=== PATIENT | female | born 1960 | race Caucasian/White ===

== ENCOUNTER 2017-07-19 16:15 | Inpatient (IN) | payer OTHER ==
[~2017-07-19] VITALS: Ht 172.7 cm; Wt 69.9 kg
[2017-07-19 17:08] LABS: BASOPHILS # (AUTO) 0.1 /CMM (0.0-0.2); BASOPHILS % (AUTO) 1.3 % (0.0-2.0); EOSINOPHILS # (AUTO) 0.5 /CMM (0.0-0.7); EOSINOPHILS % (AUTO) 7.2 % (0.0-6.0); HEMATOCRIT 38 % (33-45); HEMOGLOBIN 12.7 g/dL (11.5-14.8); LYMPHOCYTES % (AUTO) 28.9 % (20.0-44.0); MEAN CORPUSCULAR HEMOGLOBIN 30 PG (26.0-33.0); MEAN CORPUSCULAR HGB CONC 33 g/dl (31.0-36.0); MEAN CORPUSCULAR VOLUME 90 fL (82-100); MONOCYTES # (AUTO) 0.8 /CMM (0.1-1.30); MONOCYTES % (AUTO) 10.8 % (2.0-12.0); NEUTROPHILS # (AUTO) 3.6 /CMM (1.8-8.9); NEUTROPHILS % (AUTO) 51.8 % (43.0-81.0); PLATELET COUNT (AUTO) 162 /CMM (150-450); RDW COEFFICIENT OF VARIATION 12.9 (11.5-15.0); RED BLOOD CELL COUNT(AUTO) 4.26 MIL/uL (4.0-5.2)
[2017-07-19 17:21] LABS: ALBUMIN 2.8 g/dL (3.4-5.0); BILIRUBIN,DIRECT 0.1 mg/dL (0.0-0.2); BILIRUBIN,TOTAL 0.4 mg/dL (0.2-1.0); CALCIUM, SERUM 8.4 mg/dL (8.5-10.1); CREATININE 0.9 mg/dL (0.6-1.3); TOTAL PROTEIN, SERUM 6.5 g/dL (6.4-8.2)
--- NOTE | 2017-07-19 17:30 | NUR ---
MICHAEL FROM [facility] FOR ABDOMINAL PAIN, SORETHROAT AND DYSPHAGIA. NAD NOTED. PT AAO X4, VSS. RR EVEN AND UNLABORED. VSS. PENDING MD DIEZ.
--- NOTE | 2017-07-19 18:00 | NUR ---
PT BACK FROM CT
[2017-07-19] MEDS ORDERED: TEMA15CA PO (18:18)
[2017-07-19] MEDS ORDERED: ACET-868 PO (18:18)
[2017-07-19] MEDS ORDERED: CLOZ100T32 PO (18:18)
[2017-07-19] MEDS ORDERED: LORA1TAB PO (18:18)
[2017-07-19] MEDS ORDERED: MAGN400O6 PO (18:18)
[2017-07-19] MEDS ORDERED: ARIP10TA15 PO (18:18)
[2017-07-19] MEDS ORDERED: MAG-5 PO (18:18)
[2017-07-19 18:25] LABS: APPEARANCE,URINE Cloudy (CLEAR); BILIRUBIN,URINE Negative (NEGATIVE); BLOOD, URINE Negative Ery/uL (NEGATIVE); COLOR,URINE Yellow (YELLOW); KETONES,URINE Negative (NEGATIVE); LEUKOCYTE ESTERASE ,URINE Negative (NEGATIVE); NITRITE, URINE Negative (NEGATIVE); PROTEIN,URINE Trace mg/dl (NEGATIVE); UGLUCOSE Negative (NEGATIVE); UROBILINOGEN,URINE 0.2 EU/dL (0.2)
[2017-07-19] MEDS ORDERED: IV NS 0.9% 1,000 ML BAG IV ONE (18:30)
[2017-07-19] MEDS ORDERED: LEVE500T9 PO (18:46)
[2017-07-19] MEDS ORDERED: DIVA500T7 PO (18:46)
[2017-07-19] MEDS ORDERED: ATOR20TA PO (18:46)
[2017-07-19] MEDS ORDERED: DIVA250T6 PO (18:46)
[2017-07-19 19:17] LABS: PH,URINE >9.0 (5.0-8.0)
--- NOTE | 2017-07-19 19:21 | NUR ---
PATIENT WILL BE ADMITTED INTO ROOM 324-2.
[2017-07-19 19:22] LABS: BACTERIA,URINE Few /HPF (None Seen); MUCUS,URINE Few /LPF (None Seen); RBC,URINE 0-2 /HPF (0-2); SQUAMOUS EPITHELIAL CELL,UR Moderate /HPF (None Seen); URINE AMORPHOUS PHOSPHATES Many /HPF (None Seen)
--- NOTE | 2017-07-19 19:33 | NUR ---
REPORT GIVEN TO FARIDA MOON FOR MACY.
--- NOTE | 2017-07-19 19:35 | NUR ---
KANNAN/CNA AT BEDSIDE AND TO ORDER MIDLINE FOR PT.
[2017-07-19 19:45] VITALS: BP 105/67
--- NOTE | 2017-07-19 19:45 | NUR ---
RN NOTES ADMITTED A 56 YEARS OLD FEMALE PT FROM [facility] WITH PRIMARY DIAGNOSIS OF DYSPHAGIA AND INTRACTABLE NAUSEA AND VOMITING. PT IS ALERT AND ORIENTED X2-3, LOOKS ANXIOUS, ABDOMINAL AT TOLERABLE LEVEL AT THIS TIME, DENIES NAUSEA AND VOMITING, NO SOB, NOT IN DISTRESS, ON ROOM AIR WITH GOOD SATURATION. PT WAS NOTED SPITTING OUT SALIVA. NO IV ACCESS AT THIS TIME, WILL INSERT MIDLINE ORDERED. KEPT PT COMFORTABLE AND ATTENDED. ALL ORDERES NOTED AND CARRIED OUT. WILL CONTINUE TO MONITOR PT.
[2017-07-19 20:00] VITALS: BP 105/67
[2017-07-19] MEDS ORDERED: MORPHINE SULFATE INJ 2 MG/ML DISP.SYRIN IV PRN (20:00)
[2017-07-19] MEDS ORDERED: ACETAMINOPHEN 325 MG TABLET PO PRN (20:00)
[2017-07-19] MEDS ORDERED: IV D5/ 0.9% NACL 1,000 ML IV ONE (20:00)
[2017-07-19] MEDS ORDERED: ONDANSETRON HCL/PF 4 MG/2 ML VIAL IVP PRN (20:00)
[2017-07-19] MEDS ORDERED: MAG HYDROX/AL HYDROX/SIMETH 30 ML UDC PO PRN (20:00)
[2017-07-19] MEDS ORDERED: MAGNESIUM HYDROXIDE 30 ML UDC PO PRN (20:00)
[2017-07-19] MEDS: ENOXAPARIN SODIUM 40 MG/0.4 ML DISP.SYRIN SQ SCH (20:56)
[2017-07-19] MEDS ORDERED: LORAZEPAM INJ 2 MG/ML VIAL IV PRN (21:00)
[2017-07-19] MEDS ORDERED: HYDROMORPHONE 1 MG/1 ML DISP.SYRIN IV PRN (21:00)
--- NOTE | 2017-07-19 22:55 | NUR ---
RN NOTES MIDLINE INSERTED ON RIGHT UPPER ARM WITH GAUGE 20, PT TOLERATED PROCEDURE WELL. WILL START ALL IV MEDS AND FLUID ORDERED.
[2017-07-19] MEDS: VALPROATE 250 MG in IV D5W 100 ML IV SCH (23:04)
[2017-07-20] MEDS: FAMOTIDINE/PF INJ 20 MG/2 ML VIAL IV SCH ×3 (00:05→20:43)
[2017-07-20] MEDS: VALPROATE 250 MG in IV D5W 100 ML IV SCH ×3 (05:46→20:44)
--- NOTE | 2017-07-20 07:05 | NUR ---
RN NOTES PT AWAKE, HOB ELEVATED,NO SOB, NOT IN DISTRESS, ON ROOM AIR WITH GOOD SATURATION. VITAL SIGNS STABLE, AFEBRILE. NO COMPLAIN OF PAIN, NO EPISODE OF NAUSEA AND VOMITING. KEPT PT ON NPO UNTIL SWALLOW EVAL DONE. ALL DUE MEDS GIVEN. ALL NEEDS MET. WILL ENDORSE TO MORNING RN FOR CONTINUITY OF CARE.
[2017-07-20 07:14] LABS: BASOPHILS # (AUTO) 0.1 /CMM (0.0-0.2); BASOPHILS % (AUTO) 2.5 % (0.0-2.0); EOSINOPHILS # (AUTO) 0.5 /CMM (0.0-0.7); HEMATOCRIT 34 % (33-45); HEMOGLOBIN 11.4 g/dL (11.5-14.8); LYMPHOCYTES # (AUTO) 2.1 /CMM (0.8-4.8); LYMPHOCYTES % (AUTO) 40.8 % (20.0-44.0); MEAN CORPUSCULAR HEMOGLOBIN 31 PG (26.0-33.0); MEAN CORPUSCULAR HGB CONC 34 g/dl (31.0-36.0); MEAN CORPUSCULAR VOLUME 91 fL (82-100); MONOCYTES # (AUTO) 0.5 /CMM (0.1-1.30); MONOCYTES % (AUTO) 9.7 % (2.0-12.0); NEUTROPHILS # (AUTO) 1.9 /CMM (1.8-8.9); PLATELET COUNT (AUTO) 139 /CMM (150-450); RDW COEFFICIENT OF VARIATION 13.1 (11.5-15.0); RED BLOOD CELL COUNT(AUTO) 3.69 MIL/uL (4.0-5.2); WHITE BLOOD COUNT (AUTO) 5.1 K/uL (4.3-11.0)
--- NOTE | 2017-07-20 07:15 | NUR ---
MS RN OPENING NOTES RECEIVED PT FROM NIGHTSHIFT NURSE IN STABLE CONDITION. PT IS A/O X2-3. NO SOB OR SIGNS OF DISTRESS NOTED. BREATHING IS EVEN AND UNLABORED. PT DENIES ANY PAIN AT THIS TIME. NO COMPLAINTS OF NAUSEA OR REPORTED VOMITING DURING THE NIGHT. RIGHT UPPER ARM MIDLINE 20G INTACT AND PATENT INFUSING D5 NS @ 100ML/HR. PT. TOLERATING INFUSION WELL. NO REDNESS IR SIGNS OF INFILTRATION NOTED. PT. REMAINS NPO. SEIZURE PRECAUTIONS IN PLACE. BED IN LOW LOCKED POSITION, ASIDE RAILS UP X2, CALL LIGHT WITHIN REACH. WILL CONTINUE TO MONITOR.
[2017-07-20 07:35] LABS: CALCIUM, SERUM 7.7 mg/dL (8.5-10.1); CREATININE 0.9 mg/dL (0.6-1.3); MAGNESIUM 1.9 mg/dL (1.8-2.4); PHOSPHORUS 4.6 mg/dL (2.5-4.9); POTASSIUM 4.2 mmol/L (3.5-5.1)
[2017-07-20 08:00] VITALS: BP 113/73
--- NOTE | 2017-07-20 08:49 | NUR ---
MS RN NOTES DR. DIAZ ASKS THAT THE PT. BE PREPARED FOR AN EGD. PT STATED THTY. WAS ASKED IF SHE CAN SIGNS HER OWN CONSENTS. PT. CONSENTED TO PROCEDURE AND SIGNED CONSENTS. SURGICAL CHECKLIST COMPLETED.
--- NOTE | 2017-07-20 08:52 | NUR ---
MS RN NOTES ADMITTING AND CASE MANAGEMENT WERE NOTIFIED THAT THE PT HAS A CONSERVATOR. THE CONSERVATOR'S CONTACT INFORMATION WAS GIVEN TO EACH.
[2017-07-20] MEDS: LEVETIRACETAM (500MG) 500 MG in IV NS 0.9% 100 ML IV SCH ×4 (08:55→21:20)
--- NOTE | 2017-07-20 08:56 | NUR ---
MS RN NOTES PT. TAKEN DOWN FOR EGD PROCEDURE.
--- NOTE | 2017-07-20 09:13 | NUR ---
MS RN NOTES KATIE FROM SURGERY TO CLARIFY IF THE PT. HAS A CONSERVATOR BECAUSE THE PT. ASKED IF IT WAS OKAY FOR HER TO HAVE SIGNED HER CONSENTS WITHOUT HER CONSERVATOR. NOTHING IN THE PT'S CHART INDICATES THAT SHE HAS ONE. PT'S FACILITY WAS CALLED TO VERIFY IF THE IS TRUE. PER THE FACILITY, SHE HAS A CONSERVATOR NAMED AMY DUNAWAY WHO CAN BE REACHED BY PHONE. HER NUMBER IS [phone]. WILL CALL AMY TO GET PROPER CONSENT FOR PROCEDURE.
--- NOTE | 2017-07-20 09:22 | NUR ---
MS RN NOTES A PHONE CALL WAS PLACED TO AMY THE PT.S CONSERVATOR. AMY STATED THAT SHE IS WORRIED THAT THE PT'S CONDITION IS GETTING WORSE BECAUSE SHE HAS GONE A FEW DAYS WITHOUT EATING AND HAS LOST WEIGHT. SHE ALSO STATED THAT THE PHYSICIAN MUST FILL OUT A PHYSICIAN STATEMENT LETTER, BEFORE SHE WILL APPROVE OF ANY PROCEDURE. KATIE FROM SURGERY WAS MADE AWARE OF THIS. KATIE STATES THAT THE PT. WILL BE BROUGHT UP AND WILL AWAIT FOR THE MD TO FILL OUT THE FORM. SHE ALSO STATED THAT DR. GROVES NEEDS TO LEAVE DUE TO OTHER SCHEDULED PROCEDURES WHICH HE HAS AT AN OTHER HOSPITAL.
[2017-07-20] MEDS ORDERED: ACETAMINOPHEN 325 MG TABLET PO PRN (09:30)
[2017-07-20] MEDS ORDERED: MAG HYDROX/AL HYDROX/SIMETH 30 ML UDC PO SCH (09:30)
[2017-07-20] MEDS ORDERED: LORAZEPAM 1 MG TABLET PO PRN (09:30)
[2017-07-20] MEDS ORDERED: MAGNESIUM HYDROXIDE 30 ML UDC PO PRN (09:30)
[2017-07-20] MEDS: ARIPIPRAZOLE 5 MG TABLET PO SCH (09:48)
--- NOTE | 2017-07-20 10:36 | NUR ---
MS RN NOTES PT'S FACILITY FAXED OVER A COPY OF THE PHYSICIAN STATEMENT FORM. DR. SELLERS WAS ASKED IF HE CAN FILL OUT THE FORM BUT STATED THAT HE LEFT FOR THE DAY AND TO LET DR. DIAZ DO IT. NIKOS FROM SURGERY CALLED DR. DIAZ TO LET HIM KNOW ABOUT THE FORM AND GAVE HIM THE CONSERVATOR'S CONTACT INFORMATION SO THAT THEY CAN TALK AND TRY TO GET A CONSENT. TIRSO STATED THAT HE WILL BE BACK AROUND 1600. WILL AWAIT FOR HIS ARRIVAL
[2017-07-20] MEDS: DIVALPROEX SODIUM 250 MG TABLET.DR PO SCH ×2 (13:00→17:00)
[2017-07-20 16:00] VITALS: BP 114/70
--- NOTE | 2017-07-20 16:53 | NUR ---
MS RN NOTES CALLED SURGERY TO SEE IF DR. DIAZ HAS ARRIVED WITH A POSSIBLE UPDATE IN REGARDS TO THE PT'S EGD. SURGERY STAFF STATES THAT NIKOS IS GONE FOR THE DAY AND DR. DIAZ HAS NOT COME IN. DR. DIAZ'S EXCHANGE WAS CALLED. A VOICEMAIL WAS LEFT, BUT NO CALL BACK AT THIS TIME. ANNIKA THE CHARGE NURSE WAS MADE AWARE
[2017-07-20] MEDS: DIVALPROEX SODIUM 500 MG TABLET.DR PO SCH (17:00)
[2017-07-20] MEDS ORDERED: TEMAZEPAM 15 MG CAPSULE PO SCH (18:00)
--- NOTE | 2017-07-20 18:36 | NUR ---
MS RN CLOSING NOTES PT. REMAINS STABLE. ALL NEEDS WERE ANTICIPATED FOR AN MET DURING SHIFT. STILL AWAITING TO HEAR BACK FROM DR. DIAZ IN REGARDS TO PT'S EGD. WILL ENDORSE TO NIGHTSHIFT NURSE TO FOLLOW UP. PT IS STILL NPO AT THIS TIME. VITAL SIGNS HAVE REMAINED STABLE THROUGHOUT SHIFT. SEIZURE PRECAUTIONS REMAIN IN PLACE. WILL ENDORSE TO NIGHTSHIFT NURSE FOR MACY
--- NOTE | 2017-07-20 19:01 | NUR ---
MS RN NOTES DR. DIAZ CALLED IN REGARDS TO EGD. MD STATES THAT HE COULD NOT GET CONSENT FROM THE PT'S CONSERVATOR AND WILL NO LONGER PROCEED WITH THE EGD. ALSO STATED THAT THE PT'S DIET MAY BE CHANGED WITH THE RECOMMENDATIONS MADE BY THE SPEECH THERAPIST. WILL CHANGE FNS ORDER AND UPDATE NIGHTSHIFT NURSE
--- NOTE | 2017-07-20 19:05 | NUR ---
RN NOTES RECEIVED PT AWAKE, HOB ELEVATED, NO SOB, NOT IN DISTRESS, ON ROOM AIR AND TOLERATED WELL. PT ALERT AND ORIENTED X2-3, LOOKS ANXIOUS REGARDING HEALTH CONDITION. PT DENIES PAIN, NAUSEA AND VOMITING. PT VERBALIZING WANTING TO EAT, WILL PROVIDE PUREED FOOD WITH NECTAR THICK LIQUIDS ORDERED. RIGHT UPPER ARM MIDLINE PATENT AND INTACT WITH ONGOING IVF INFUSING WELL. ASSISTED TO THE BATHROOM WITH STEADY GAIT NOTED. FALL PRECAUTION AND SEIZURE PRECAUTION OBSERVED. KEPT COMFORTABLE AND ATTENDED. WILL CONTINUE TO MONITOR PT.
--- NOTE | 2017-07-20 19:45 | NUR ---
RN NOTES APPLE SAUCE, VANILLA PUDDING AND OZZIE WITH NECTAR THICK WATER GIVEN TO THE PT AND TOLERATED WELL. NO SIGNS OF ASPIRATION NOTED. WILL CONTINUE TO MONITOR PT.
[2017-07-20 20:11] VITALS: BP 141/81
[2017-07-20] MEDS: ENOXAPARIN SODIUM 40 MG/0.4 ML DISP.SYRIN SQ SCH (20:42)
[2017-07-20] MEDS ORDERED: LEVETIRACETAM (250 MG) 250 MG TABLET PO SCH (21:00)
[2017-07-20] MEDS: ATORVASTATIN 10 MG TABLET PO SCH (21:34)
[2017-07-20] MEDS: CLOZAPINE 100 MG TABLET PO SCH (21:34)
[2017-07-21] MEDS: VALPROATE 250 MG in IV D5W 100 ML IV SCH ×3 (05:20→21:27)
--- NOTE | 2017-07-21 06:39 | NUR ---
RN NOTES PT AWAKE, HOB ELEVATED,NO SOB, NOT IN DISTRESS, ON ROOM AIR WITH GOOD SATURATION. VITAL SIGNS STABLE, AFEBRILE. NO COMPLAIN OF PAIN, NO EPISODE OF NAUSEA AND VOMITING. PT STARTED PUREED DIET WITH NECTAR THICK LIQUIDS AND TOLERATED WELL, PT DID NOT COUGH, NO SIGNS OF ASPIRATION NOTED. ALL DUE MEDS GIVEN. ALL NEEDS MET. FALL PRECAUTION OBSERVED. NO SIGNIFICANT CHANGE IN CONDITION NOTED. WILL ENDORSE TO MORNING RN FOR CONTINUITY OF CARE.
[2017-07-21 06:54] LABS: BASOPHILS # (AUTO) 0.1 /CMM (0.0-0.2); BASOPHILS % (AUTO) 2.4 % (0.0-2.0); EOSINOPHILS # (AUTO) 0.5 /CMM (0.0-0.7); EOSINOPHILS % (AUTO) 8.6 % (0.0-6.0); HEMATOCRIT 37 % (33-45); HEMOGLOBIN 12.4 g/dL (11.5-14.8); LYMPHOCYTES # (AUTO) 1.4 /CMM (0.8-4.8); LYMPHOCYTES % (AUTO) 25.8 % (20.0-44.0); MEAN CORPUSCULAR HEMOGLOBIN 31 PG (26.0-33.0); MEAN CORPUSCULAR HGB CONC 34 g/dl (31.0-36.0); MEAN CORPUSCULAR VOLUME 91 fL (82-100); MONOCYTES # (AUTO) 0.5 /CMM (0.1-1.30); MONOCYTES % (AUTO) 10.3 % (2.0-12.0); NEUTROPHILS # (AUTO) 2.8 /CMM (1.8-8.9); NEUTROPHILS % (AUTO) 52.9 % (43.0-81.0); PLATELET COUNT (AUTO) 169 /CMM (150-450); RDW COEFFICIENT OF VARIATION 13.1 (11.5-15.0); RED BLOOD CELL COUNT(AUTO) 4.04 MIL/uL (4.0-5.2); WHITE BLOOD COUNT (AUTO) 5.3 K/uL (4.3-11.0)
[2017-07-21 07:12] LABS: CALCIUM, SERUM 8.1 mg/dL (8.5-10.1); CREATININE 0.8 mg/dL (0.6-1.3); POTASSIUM 4.1 mmol/L (3.5-5.1)
[2017-07-21 08:00] VITALS: BP 123/77
--- NOTE | 2017-07-21 08:11 | NUR ---
MS/RN OPENING NOTE PATIENT RECEIVED IN BED IN STABLE CONDITION. ALERT AND ORIENTED TIMES 2. NO ACUTE DISTRESS NOTED. DENIES OF ANY PAIN OR DISCOMFORT. ALL NEEDS ATTENDED TO. CALL LIGHT WITHIN REACH. WILL CONTINUE TO MONITOR TO ENSURE SAFETY.
[2017-07-21] MEDS: ARIPIPRAZOLE 5 MG TABLET PO SCH ×2 (08:43→09:00)
[2017-07-21] MEDS: FAMOTIDINE/PF INJ 20 MG/2 ML VIAL IV SCH ×2 (08:44→21:27)
[2017-07-21] MEDS: LEVETIRACETAM (500MG) 500 MG in IV NS 0.9% 100 ML IV SCH ×2 (08:45→20:34)
[2017-07-21] MEDS: DIVALPROEX SODIUM 250 MG TABLET.DR PO SCH ×2 (08:47→13:00)
[2017-07-21] MEDS: DIVALPROEX SODIUM 500 MG TABLET.DR PO SCH (08:47)
--- NOTE | 2017-07-21 08:47 | NUR ---
MS/RN DEPAKOTE PO NOT ADMINISTER DEPAKOTE PO NOT ADMINISTERED SECONDARY TO PATIENT CURRENTLY ON DEPACON IV
--- NOTE | 2017-07-21 12:08 | NUR ---
SW was informed by IDRIS Bowden to inquire if pt. has a conservator since pt. needs an EGD and a consent will be required for the procedure. SW looked into [employer], and pt. does have a conservator Senait Marcos . SW contact [facility] to inquire if they were able to get hold of the conservator. [facility] informed SW that she will ask pt's RN and follow up with SW if needed.
--- NOTE | 2017-07-21 13:09 | NUR ---
MS/RN DEPAKOTE NOT ADMINISTERED PATIENT REFUSED TO TAKE A MED PO AND CURRENTLY ON DEPACON IV Q 8 HRS.
[2017-07-21 16:00] VITALS: BP 100/59
[2017-07-21] MEDS: DIAZEPAM 5 MG/ML 2 ML DISP.SYRIN IV SCH (17:33)
--- NOTE | 2017-07-21 18:08 | NUR ---
MS/RN CLOSING NOTE PATIENT IN BED IN STABLE CONDITION. ALERT AND ORIENTED TIMES 2. ABLE TO MAKE NEEDS KNOWN. ALL NEEDS ATTENDED. NO ACUTE DISTRESS. NO COMPLAIN OF PAIN OR DISCOMFORT. CALL LIGHT WITHIN REACH. WILL ENDORSE TO NEXT SHIFT FOR CONTINUITY OF CARE.
--- NOTE | 2017-07-21 19:15 | NUR ---
RN OPEN NOTES RECEIVED PATIENT AWAKE IN BED. A/O X2. NO SIGNS OF DISTRESS OR DISCOMFORT. BREATHING EVEN AND UNLABORED. HAS VIOLETA MIDLINE PATENT AND INTACT, NO SIGNS OF REDNESS OR INFILTRATION. BED IN LOW LOCKED POSITION WITH SIDE RAILS X2. CALL LIGHT WITHIN REACH. WILL CONTINUE TO MONITOR.
[2017-07-21 20:00] VITALS: BP 119/73
[2017-07-21] MEDS: ENOXAPARIN SODIUM 40 MG/0.4 ML DISP.SYRIN SQ SCH (20:34)
[2017-07-21] MEDS: ATORVASTATIN 10 MG TABLET PO SCH (21:27)
[2017-07-21] MEDS: CLOZAPINE 100 MG TABLET PO SCH (21:27)
[2017-07-22] MEDS: DIAZEPAM 5 MG/ML 2 ML DISP.SYRIN IV SCH ×2 (04:31→16:40)
[2017-07-22] MEDS: VALPROATE 250 MG in IV D5W 100 ML IV SCH ×3 (04:31→21:41)
--- NOTE | 2017-07-22 06:52 | NUR ---
RN CLOSING NOTES PATIENT RESTING IN BED, EASILY AROUSABLE TO NAME. A/O X2. NO SIGNS OF DISTRESS OR DISCOMFORT. BREATHING EVEN AND UNLABORED. HAS VIOLETA MIDLINE PATENT AND INTACT, NO SIGNS OF REDNESS OR INFILTRATION. ALL NEEDS MET. NO SIGNIFICANT CHANGES THROUGH THE NIGHT. BED IN LOW LOCKED POSITION WITH SIDE RAILS X2. CALL LIGHT WITHIN REACH. WILL ENDORSE TO AM SHIFT FOR MACY.
[2017-07-22 07:21] LABS: BASOPHILS # (AUTO) 0.1 /CMM (0.0-0.2); BASOPHILS % (AUTO) 1.9 % (0.0-2.0); EOSINOPHILS # (AUTO) 0.5 /CMM (0.0-0.7); EOSINOPHILS % (AUTO) 10.9 % (0.0-6.0); HEMATOCRIT 37 % (33-45); HEMOGLOBIN 12.6 g/dL (11.5-14.8); LYMPHOCYTES # (AUTO) 2.5 /CMM (0.8-4.8); LYMPHOCYTES % (AUTO) 50.9 % (20.0-44.0); MEAN CORPUSCULAR HEMOGLOBIN 31 PG (26.0-33.0); MEAN CORPUSCULAR HGB CONC 34 g/dl (31.0-36.0); MEAN CORPUSCULAR VOLUME 92 fL (82-100); MONOCYTES # (AUTO) 0.4 /CMM (0.1-1.30); MONOCYTES % (AUTO) 8.2 % (2.0-12.0); NEUTROPHILS # (AUTO) 1.4 /CMM (1.8-8.9); NEUTROPHILS % (AUTO) 28.1 % (43.0-81.0); PLATELET COUNT (AUTO) 172 /CMM (150-450); RDW COEFFICIENT OF VARIATION 13.1 (11.5-15.0); RED BLOOD CELL COUNT(AUTO) 4.05 MIL/uL (4.0-5.2)
[2017-07-22 07:24] LABS: CREATININE 0.8 mg/dL (0.6-1.3); POTASSIUM 3.7 mmol/L (3.5-5.1)
--- NOTE | 2017-07-22 07:46 | NUR ---
MS/RN OPENING NOTE PATIENT RECEIVED IN BED IN STABLE CONDITION. ALERT AND ORIENTED TIMES 2. NO SIGNS OF ACUTE DISTRESS. NO COMPLAIN OF PAIN OR DISCOMFORT AT THIS TIME. ALL NEEDS ATTENDED TO. CALL LIGHT WITHIN REACH. WILL CONTINUE TO MONITOR TO ENSURE SAFETY.
[2017-07-22 08:00] VITALS: BP 125/78
[2017-07-22] MEDS: ARIPIPRAZOLE 5 MG TABLET PO SCH (08:24)
[2017-07-22] MEDS: FAMOTIDINE/PF INJ 20 MG/2 ML VIAL IV SCH ×2 (08:24→20:42)
[2017-07-22] MEDS: LEVETIRACETAM (500MG) 500 MG in IV NS 0.9% 100 ML IV SCH ×2 (09:57→20:41)
--- NOTE | 2017-07-22 11:00 | NUR ---
MS/RN S/B Dr Recio Seen by Dr Recio - ROSA on hold until authorization id obtained from conservator. To continue with puree diet.
[2017-07-22 16:00] VITALS: BP 104/65
--- NOTE | 2017-07-22 16:00 | NUR ---
MS/RN S/B Jacob Bui Seen by Jacob Bui - no new orders.
--- NOTE | 2017-07-22 18:17 | NUR ---
MS/RN CLOSING NOTE PATIENT IN BED IN STABLE CONDITION. ALERT AND ORIENTED TIMES 2. NO SIGNS OF ACUTE DISTRESS. NO COMPLAIN OF PAIN AND DISCOMFORT. ALL NEEDS ATTENDED TO. CALL LIGHT WITH IN REACH. WILL ENDORSE TO NEXT SHIFT FOR CONTINUITY OF CARE.
--- NOTE | 2017-07-22 19:00 | NUR ---
RN MS NOTES RECEIVED PT IN BED, A/O X 2, PATIENT NOT IN ACUTE DISTRESS, IV SITE INTACT NO S/S OF INFILTRATION. CALL LIGHT WITHIN REACH. SAFETY MEASURES IN PLACE, ON LOW BED, WILL CONTINUE TO MONITOR PT.
[2017-07-22 20:00] VITALS: BP_SYST 135; BP_SYST 138; BP_DIAS 71
[2017-07-22] MEDS: ENOXAPARIN SODIUM 40 MG/0.4 ML DISP.SYRIN SQ SCH (20:41)
[2017-07-22] MEDS: CLOZAPINE 100 MG TABLET PO SCH (21:20)
[2017-07-22] MEDS: ATORVASTATIN 10 MG TABLET PO SCH (21:20)
[2017-07-22] MEDS ORDERED: TEMAZEPAM 15 MG CAPSULE PO SCH (22:00)
[2017-07-23] MEDS: VALPROATE 250 MG in IV D5W 100 ML IV SCH (04:37)
[2017-07-23] MEDS: DIAZEPAM 5 MG/ML 2 ML DISP.SYRIN IV SCH (04:37)
--- NOTE | 2017-07-23 06:33 | NUR ---
MS RN CLOSING NOTES PATIENT COMFORTABLY ASLEEP AND EASILY AWAKEN, A/O X 2, HEAD OF BED ELEVATED FOR BETTER LUNG EXPANSION. TOLERATING ROOM AIR 02 SAT AT 99% IV SITE NO S/S OF INFILTRATED PATENT AND FLUSHED,NOT IN ACUTE DISTRESS. RESPIRATIONS EVEN AND UNLABORED, FREQUENT VISUAL CHECK DONE FOR SAFETY EVERY 2 HOURS. NO COMPLAINS OF CHEST PAIN THROUGHOUT THE 12 HOUR SHIFT. NURSING CARE RENDERED, NEEDS ATTENDED AND ANTICIPATED, KEPT CLEAN AND DRY AND COMFORTABLE, GOOD SKIN CARE PROVIDED. OFFLOAD AT ALL TIMES. NO SEIZURE NOTED, KEPT SAFE. SAFE HAZARD FREE ENVIRONMENT PROVIDED. CALL LIGHT WITHIN EASY TO REACH, ON LOW BED AT ALL TIMES TO ENSURE SAFETY, WILL ENDORSE TO THE NEXT SHIFT CONTINUE PLAN OF CARE
[2017-07-23 08:00] VITALS: BP 103/68
--- NOTE | 2017-07-23 08:00 | NUR ---
m/s floor sanding machine operator: initial assessment received pt in bed awake, a/ox2, able to make needs known. pt has a conservator. continue on puree diet as ordered. no c/o n/v or any discomfort. pt able to ambulate without difficulty. instructed to call for assistance. will continue to monitor.
[2017-07-23 08:19] LABS: BASOPHILS # (AUTO) 0.1 /CMM (0.0-0.2); BASOPHILS % (AUTO) 2.6 % (0.0-2.0); EOSINOPHILS # (AUTO) 0.4 /CMM (0.0-0.7); EOSINOPHILS % (AUTO) 9.2 % (0.0-6.0); HEMATOCRIT 40 % (33-45); HEMOGLOBIN 13.6 g/dL (11.5-14.8); LYMPHOCYTES # (AUTO) 2.2 /CMM (0.8-4.8); LYMPHOCYTES % (AUTO) 48.3 % (20.0-44.0); MEAN CORPUSCULAR HEMOGLOBIN 31 PG (26.0-33.0); MEAN CORPUSCULAR HGB CONC 34 g/dl (31.0-36.0); MEAN CORPUSCULAR VOLUME 92 fL (82-100); MONOCYTES # (AUTO) 0.4 /CMM (0.1-1.30); MONOCYTES % (AUTO) 8.9 % (2.0-12.0); NEUTROPHILS # (AUTO) 1.4 /CMM (1.8-8.9); PLATELET COUNT (AUTO) 166 /CMM (150-450); RED BLOOD CELL COUNT(AUTO) 4.38 MIL/uL (4.0-5.2); WHITE BLOOD COUNT (AUTO) 4.5 K/uL (4.3-11.0)
[2017-07-23] MEDS: ARIPIPRAZOLE 5 MG TABLET PO SCH (08:26)
[2017-07-23 08:49] LABS: CALCIUM, SERUM 8.3 mg/dL (8.5-10.1); CREATININE 0.9 mg/dL (0.6-1.3); MAGNESIUM 1.9 mg/dL (1.8-2.4); PHOSPHORUS 4.3 mg/dL (2.5-4.9); POTASSIUM 4.2 mmol/L (3.5-5.1)
[2017-07-23] MEDS ORDERED: LEVETIRACETAM SOL (5 ML) 100 MG/ML UDC PO SCH (09:00)
[2017-07-23] MEDS: FAMOTIDINE/PF INJ 20 MG/2 ML VIAL IV SCH (09:13)
--- NOTE | 2017-07-23 10:00 | NUR ---
m/s gas regulator repairer helper: notes pt tolerating her diet well. no c/o n/v or any abdominal discomfort.
[2017-07-23] MEDS ORDERED: VALPROIC ACID 250 MG/5 ML UDC GT SCH (13:00)
--- NOTE | 2017-07-23 13:00 | NUR ---
m/s food and nutrition professor: notes dr. hawthorne here and informed re: diet advance to [facility] soft by speech therapist. no s/s of aspiration noted. instructed to call for assistance. will continue to monitor.
--- NOTE | 2017-07-23 13:30 | NUR ---
M/S RADIO INTERFERENCE SUPERVISOR: NOTES PT NO TROUBLE SWALLOWING MECH SOFT DIET. DENIES N/V OR ANY ABDOMINAL DISCOMFORT. WILL CONTINUE TO MONITOR.
--- NOTE | 2017-07-23 15:30 | NUR ---
m/s senior tax accountant: notes dr. hawthorne notified re: pt going to [facility] at this afternoon per case management with okay to d'c to sn[facility]. order acknowledged. per case management her conservator agreed to go snf. pt made aware, but pt unable to sign discharge papers due to cognitive impairment and conservatorship.
--- NOTE | 2017-07-23 15:40 | NUR ---
m/s oracle database developer: notes report given to briana (nsg electronic gaming device supervisor) from [facility] for continuity of care.
--- NOTE | 2017-07-23 15:50 | NUR ---
m/s auto bumper straightener: notes midline removed with tip intact with no swelling, no redness, and no bleeding noted. will continue to monitor.
--- NOTE | 2017-07-23 16:30 | NUR ---
m/s laboratory worker: notes med response here and report given to one of the crew.
--- NOTE | 2017-07-23 16:44 | NUR ---
m/s loss prevention/safety district manager: discharged discharged to snf via ambulance in stable condition with all belongings/valuable.
== END 2017-07-23 16:45 | DRG 155 ==
LOC: ER 16:16 → MED 19:23
PROVIDERS: ADMIT Nurse Practitioner Acute Care; ATTEND Nurse Practitioner Acute Care
PROC: 05H533Z Insertion of Infusion Device into Right Subclavian Vein, Percutaneous Approach (ICD-10-PCS; principal; 2017-07-19)
DX: K11.7 Disturbances of salivary secretion (principal); E44.0 Moderate protein-calorie malnutrition; K22.0 Achalasia of cardia; R13.10 Dysphagia, unspecified; E83.51 Hypocalcemia; K27.9 Peptic ulcer, site unspecified, unspecified as acute or chronic, without hemorrhage or perforation; Z91.011 Allergy to milk products; Z88.5 Allergy status to narcotic agent; Z88.0 Allergy status to penicillin; Z88.4 Allergy status to anesthetic agent; G40.909 Epilepsy, unspecified, not intractable, without status epilepticus; F41.9 Anxiety disorder, unspecified; E86.9 Volume depletion, unspecified; E78.5 Hyperlipidemia, unspecified; H93.12 Tinnitus, left ear; F29 Unspecified psychosis not due to a substance or known physiological condition; T43.505A Adverse effect of unspecified antipsychotics and neuroleptics, initial encounter; Y92.129 Unspecified place in nursing home as the place of occurrence of the external cause; K20.9 Esophagitis, unspecified
CPT/HCPCS: 36415; 70450-TC; 71010-TC; 71250-TC; 80048-TC; 80061-TC; 80076-TC; 80164-TC; 81000-TC; 83690-TC; 83735-TC; 84100-TC; 85025-TC; 87081-TC; 92526; 92611-TC; A4606; J1650; J1953; J3360; J3490; J7030; J7050; J7060; Z7610